=== PATIENT | male | born 1950 | race Caucasian/White ===

== ENCOUNTER 2018-10-07 23:29 | Emergency (ER) | payer OTHER ==
[~2018-10-07] VITALS: Ht 167.6 cm; Wt 68.0 kg
[2018-10-07] MEDS ORDERED: ATENOLOL25 MG (23:38)
[2018-10-07] MEDS ORDERED: CELEBREX200MG (23:38)
[2018-10-07] MEDS ORDERED: ENBREL (23:38)
[2018-10-08] MEDS ORDERED: ZYNCOF 20-400120 ML PO (02:51)
== END 2018-10-08 02:55 | disposition home or self-care (01) ==
LOC: ER 23:29
DX: B34.9 Viral infection, unspecified (principal); R50.9 Fever, unspecified

== ENCOUNTER 2022-06-03 09:42 | Outpatient (CLI) | payer OTHER ==
[~2022-06-03 09:42] MED LIST: ATENOLOL25 MG; CELEBREX200MG; ENBREL; ZYNCOF 20-400120 ML PO
== END 2022-06-03 09:44 | disposition home or self-care (01) ==
LOC: LAB 09:42
DX: R70.0 Elevated erythrocyte sedimentation rate (principal)

== ENCOUNTER 2025-04-28 15:22 | Outpatient (CLI) | payer OTHER | END 2025-04-28 15:23 | disposition home or self-care (01) | LOC: RAD 15:22 | DX: R07.89 Other chest pain (principal) ==